=== PATIENT | female | born 1985 | race Hispanic/Latino ===

== ENCOUNTER 2016-09-05 08:02 | Emergency (ER) | payer OTHER ==
[2016-09-05] MEDS ORDERED: IBUPROFEN 600 MG TABLET PO ONE (08:30)
--- NOTE | 2016-09-05 09:37 | ER NURSING DOCUMENTATION ---
Nurse's Notes [facility] Name:Candace Hernadez Age:31 yrs Sex:Female :1985 Arrival Date:09/05/2016 Time:08:02 Bed6 Private MD:Elvis Garces Diagnosis:Finger Sprain Presentation: 09/05 08:05 Presenting complaint: Patient states: pt got her right 2nd finger stuck in a wheal st chair brake. Transition of care: PPLC. 08:05 Method Of Arrival: Private Vehicle st 08:18 Acuity: BECKA 4 st Triage Assessment: 08:05 General: Appears uncomfortable, Behavior is cooperative, crying. Pain: Complains of st pain in dorsal aspect of distal phalanx of right index finger, dorsal aspect of middle phalanx of right index finger and dorsal aspect of proximal phalanx of right index finger Pain currently is 9 out of 10 on a pain scale. 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 Cardiovascular: No deficits noted. Respiratory: No deficits noted. GI: No deficits noted. Musculoskeletal: Swelling present in dorsal aspect of distal phalanx of right index finger and dorsal aspect of middle phalanx of right index finger Tenderness present in dorsal aspect of distal phalanx of right index finger, dorsal aspect of middle phalanx of right index finger and dorsal aspect of proximal phalanx of right index finger. Injury Description: two blood blisters on tip of right finger. Historical: - Allergies: No known drug Allergies; - Home Meds: 1. Celexa Oral - PMHx: DEPRESSION; - PSHx: NONE; - Tetanus: < 10 years. - Ebola Screening: : Patient denies exposure to infectious person. Patient denies travel to an Ebola-affected area in the 21 days before illness onset. . - Social history: Smoking status: Patient states was never smoker of tobacco. Patient/guardian denies using alcohol, marijuana. Screenin:30 Infectious Disease Risk None. Abuse screen: Denies threats or abuse. Denies injuries st from another. pt feels safe at home. Nutritional screening: No deficits noted. Vital Signs: 08:05 BP 125 / 30; Pulse 81; Resp 22; Pulse Ox 96% on R/A; Weight 56.7 kg; Height [address] (154.94 cm); Pain 9/10; 08:05 Body Mass Index 23.62 (56.70 kg, 154.94 cm) st ED Course: 08:05 Patient arrived in ED. ama 08:05 Elvis Garces is Private Physician. ama 08:05 Ice pack to injury. st 08:10 Lucio Mcgregor MD is Attending Physician. sc 08:18 Port Xray Completed. zahida 08:18 Ly Méndez RN is Primary Nurse. st 08:[address] 08:30 Valuables Remains with patient Patient has correct armband on for positive st identification. Bed in low position. 09:09 Port Xray Completed. ms 09:28 Elvis Garces is Referral Physician. sc 09:[address] Administered Medications: 08:23 Drug: Ibuprofen 600 mg; Route: PO; st 09:32 Follow up: Response: Pain is decreased st Outcome: 09:30 Discharge ordered by . al 09:36 Discharged to home ambulatory. st 09:36 Condition: improved 09:36 Discharge instructions given to patient, Instructed on discharge instructions, follow up and referral plans. medication usage. 09:37 Patient [address] ED[address] 06 09:29 Discharge F/U Call: Unable to reach: non-working number st Signatures: Ly Méndez RN RN Lucio Mcgregor MD MD al Umberto, Amanda Cali, Brian Ayala, Reg Reg ama
--- NOTE | 2016-09-05 09:37 | ER PHYSICIAN DOCUMENTATION ---
Physician Documentation [facility] Name:Candace Hernadez Age:31 yrs Sex:Female :1985 Arrival Date:09/05/2016 Time:08:02 Bed6 Private MD:Elvis Garces ED, Scott Disposition: 09/05/16 09:30 Discharged to Home/Self Care. Impression: Finger Sprain. - Condition is Good. - Discharge Instructions: SPRAIN FINGER. - Medical Reconciliation form form. - Follow up: Elvis Garces; When: 4- 6 days; Reason: Recheck today's complaints. - Problem is new. - Symptoms have improved. HPI: 09/05 09:26 This 31 yrs old Female presents to ER via Private Vehicle with complaints of sc Finger Injury - R HAND. 09:26 The patient or guardian reports injury. The complaints affect the right side which is sc dominant, DIP of right index finger and PIP of right index finger. Context: The problem was sustained at work, resulted from a crush injury, wheelchair. Onset: The symptom(s)/episode began/occurred just prior to arrival. Associated signs and symptoms: The patient has no apparent associated signs or symptoms. Historical: - Allergies: No known drug Allergies; - Home Meds: 1. Celexa Oral - PMHx: DEPRESSION; - PSHx: NONE; - Tetanus: < 10 years. - Ebola Screening: : Patient denies exposure to infectious person. Patient denies travel to an Ebola-affected area in the 21 days before illness onset. . - Social history: Smoking status: Patient states was never smoker of tobacco. Patient/guardian denies using alcohol, marijuana. ROS: 09:27 Constitutional: Negative for fever, chills, and weight loss. sc Eyes: Negative for injury, pain, redness, and discharge. Neck: Negative for injury, pain, and swelling. Skin: Negative for injury, rash, and discoloration. 09:27 Neuro: Negative for headache, weakness, numbness, tingling, and seizure. sc 09:27 MS/extremity: Positive for injury or acute deformity. Exam: 09:27 Musculoskeletal/extremity: Extremities: grossly normal except: decreased ROM, pain, sc ROM: intact in all extremities, Circulation is intact in all extremities. mild swellling, no laxity detected. 09:27 Skin: Exam negative for acute changes. Vital Signs: 08:05 BP 125 / 30; Pulse 81; Resp 22; Pulse Ox 96% on R/A; Weight 56.7 kg; Height [address] (154.94 cm); Pain 9; 08:05 Body Mass Index 23.62 (56.70 kg, 154.94 cm) st MDM: 08:10 Patient medically screened. mt 09:28 Differential diagnosis: dislocation, closed fracture, contusion. Data reviewed: vital sc signs, nurses notes, radiologic studies, plain films, and as a result, I will discharge patient. Counseling: I had a detailed discussion with the patient and/or guardian regarding: the historical points, exam findings, and any diagnostic results supporting the discharge/admit diagnosis, radiology results, the need for outpatient follow up. 09/05 12:32 Order name: FINGER: MIN 2 [place] [id number]; Complete Time: 17:18 EDMS 09/05 17:18 Interpretation: Normal. mt 09/05 09:30 Order name: ORTHO: Splint; Complete Time: 09:32 mt Dispensed Medications: 08:23 Drug: Ibuprofen 600 mg; Route: PO; st 09:32 Follow up: Response: Pain is decreased st Signatures: Ly Méndez, RN RN Lucio Brady MD MD mt
--- NOTE | 2016-09-05 11:42 | RADIOLOGY REPORT ---
Three views of the right second finger demonstrate no displaced fracture or dislocation. The visualized joints appear unremarkable. IMPRESSION: No displaced injury is identified. If clinically indicated, further evaluation and/or follow-up may be of benefit. WAGNER
== END 2016-09-05 09:37 | disposition home or self-care (01) ==
LOC: ER 08:02
DX: S63.630A Sprain of interphalangeal joint of right index finger, initial encounter (principal); W23.0XXA Caught, crushed, jammed, or pinched between moving objects, initial encounter; Y92.129 Unspecified place in nursing home as the place of occurrence of the external cause; Y93.F9 Activity, other caregiving; Y99.0 Civilian activity done for income or pay
CPT/HCPCS: 99283